=== PATIENT | female | born 1985 | race Caucasian/White ===

== ENCOUNTER 2024-03-29 08:06 | Emergency (ER) | payer BC, SELFPAY ==
--- NOTE | 2024-03-29 08:15 | ED.URI ---
HPI - URI/Sore Throat General Chief Complaint: Upper Respiratory Infection Stated Complaint: Congestion/Sore Throat/Cough Time Seen by Provider: 03/29/24 08:15 History of Present Illness HPI Narrative: 39 y/o female presented for c/o sore throat and nasal congestion/drainage. Throat feels raw, ears with pressure and crackling. States symptoms started about 2 weeks ago, improved with OTC meds, then symptoms returned 'with a vengeance.' Denies sob, wheezing, n/v/d/f/c. Related Data Home Medications Medication Instructions Recorded Confirmed norelgestromin 150 mcg-e.estradiol patch 03/29/24 35 mcg/24 hr weekly transderm patch (Zafemy) Allergies Allergy/AdvReac Type Severity Reaction Status Date / Time No Known Allergies Allergy Unverified 03/29/24 08:20 Review of Systems Review of Systems: CONSTITUTIONAL: Denies body aches, fever, chills, or sweats. EYES: Denies visual changes, redness, or discharge. ENT: Reports rhinorrhea, congestion, sore throat CARDIOVASCULAR: Denies chest pain, palpitations, or edema. RESPIRATORY: reports cough Denies dyspnea. GASTROINTESTINAL: Denies abdominal pain, nausea, vomiting, or diarrhea. SKIN: Denies rash MUSCULOSKELETAL: Denies back pain, joint pain, or myalgia. NEUROLOGIC: Denies headache Exam Narrative: GENERAL: well-appearing, no acute distress. EYES: conjunctivae clear ENT: Mucous membranes moist. Nasal congestion. TM pearly corado with normal light reflex and clear effusion bilaterally; no tragal tenderness. Oropharynx not erythematous without lesions. Tonsils not enlarged and without exudate. No drooling, no hoarseness, no trismus, uvula midline. No tripod positioning, hot potato voice, or soft palate swelling. NECK: Supple. No lymphadenopathy CHEST: Clear to auscultation, breath sounds equal. No respiratory distress, speaks in full sentences. HEART: Regular rate and rhythm. No murmur heard. SKIN: Warm, dry, no rash. NEURO: Alert and oriented x3. Course Course Emergency Course: Patient is aware of diagnosis, understands and agrees to treatment plan. Anticipatory guidance given. Patient agrees to follow-up as directed and is aware of reasons to seek care at the emergency department. Portions of this record may have been created with voice recognition software Level of Care: [facility] Visit Vital Signs Vital signs: Vital Signs Temperature 98 F 03/29/24 08:17 Pulse Rate 76 03/29/24 08:17 Respiratory Rate 16 03/29/24 08:17 Blood Pressure 143/89 H 03/29/24 08:17 Pulse Oximetry 100 03/29/24 08:17 Temperature 98 F 03/29/24 08:17 Pulse Rate 76 03/29/24 08:17 Respiratory Rate 16 03/29/24 08:17 Blood Pressure 143/89 H 03/29/24 08:17 Pulse Oximetry 100 03/29/24 08:17 MDM - URI/Sore Throat MDM Narrative Medical decision making narrative: Discussed physical exam findings c/w sinusitis. Advise supportive treatments. Patient is appropriate for outpatient treatment and follow-up. Differential Diagnosis Differential diagnosis: Likely upper respiratory infection, viral infection and pharyngitis Discharge Plan Discharge Clinical Impression: Sinusitis Patient Disposition: Home, Self-Care Condition: Stable Instructions: Antibiotic Form, Sinusitis (ED) Additional Instructions: The antibiotic as directed Recommendations: Flonase spray and Zyrtec (or Claritin/Estrella) for nasal congestion over the counter Cough syrup may cause drowsiness; avoid driving or take it at night time. Tylenol 1000mg every 8 hours as needed for pain Symptomatic treatment includes: rest, fluids, and increase humidity of the air at home. Follow up with your primary care provider in 1 week. Go to the ER for worsening symptoms or concerns. Prescriptions: New amoxicillin-pot clavulanate 875-125 mg tablet 1 tablet PO Q12H 7 Days Qty: 14 0RF No Action norelgestromin-ethin.estradiol [Zafemy] 150-35 mcg/24 hr patch weekly Follow-up/Referrals: Aren,ALVIN Cespedes [Primary Care Provider] - Time of Disposition: 08:29
[2024-03-29 08:17] VITALS: BP 143/89; PULSE 76; RESP 16; TEMP 36.6; O2SAT 100
== END 2024-03-29 08:31 | disposition home or self-care (01) ==
PROVIDERS: Emergency Provider Nurse Practitioner Family; PCP Physician Assistant
DX: J32.9 Chronic sinusitis, unspecified (principal)
CPT/HCPCS: 99213; G0463